=== PATIENT | male | born 1930 | race Caucasian/White ===

== ENCOUNTER → 2017-02-02 | Outpatient (CLI) | payer MEDICARE, OTHER ==
[~2017-02-02] VITALS: Ht 172.7 cm; Wt 76.4 kg
[~2017-02-02] MED LIST: ACET-2321 PO; ACET325T51 PO; ALEN70TA7 PO; ASPI325T PO; CALC-727 PO; CLOP75TA PO; DICL100G5 TOP; DICY10CA48 PO; DONE10TA PO; FISH1CAP28 PO; HYDR-4246 PO; MAGN400O4 PO; MENT118G TOP; MULT1TAB69 PO; PHEN20SP2; POLY255P2 PO; [UNRECOGNIZED DRUG - CODE] PO
== END ==
LOC: RC 13:37
PROVIDERS: ATTEND Internal Medicine Cardiovascular Disease
DX: R06.02 Shortness of breath (principal)
CPT/HCPCS: 94060; 94726